=== PATIENT | female | born 1980 | race Two or more races ===

== ENCOUNTER 2018-01-13 11:07 | Emergency (ER) | payer MEDICAID ==
[~2018-01-13] VITALS: Ht 160 cm; Wt 90.7 kg
[~2018-01-13 11:07] MED LIST: CIPR-173 PO; HYDR-4683 PO; METR500T PO
[2018-01-13 11:20] VITALS: BP 108/41
[2018-01-13] MEDS ORDERED: KETOROLAC TROMETH 60MG/2ML VIAL IM ONE (12:15)
[2018-01-13] MEDS ORDERED: METHOCARBAMOL 500 MG TAB PO ONE (12:15)
== END 2018-01-13 13:30 | disposition left against medical advice (07) ==
LOC: ER 11:07
DX: M54.5 Low back pain (principal); M79.1 Myalgia; M54.2 Cervicalgia; E66.01 Morbid (severe) obesity due to excess calories; Z79.899 Other long term (current) drug therapy; Z68.35 Body mass index [BMI] 35.0-35.9, adult
CPT/HCPCS: 81025; 96372; 99283; J1885

== ENCOUNTER 2018-12-18 07:19 | Emergency (ER) | payer MEDICAID ==
[~2018-12-18] VITALS: Ht 160 cm; Wt 90.7 kg
[2018-12-18] MEDS ORDERED: IBUPROFEN 800 MG TAB PO ONE (08:45)
[2018-12-18 10:19] VITALS: BP 108/48
== END 2018-12-18 08:39 | disposition home or self-care (01) ==
LOC: ER 07:19
DX: S82.831A Other fracture of upper and lower end of right fibula, initial encounter for closed fracture (principal); Z79.899 Other long term (current) drug therapy; X50.1XXA Overexertion from prolonged static or awkward postures, initial encounter; Y93.89 Activity, other specified; Y99.8 Other external cause status; Y92.89 Other specified places as the place of occurrence of the external cause
CPT/HCPCS: 29515; 73610; 81025

== ENCOUNTER 2019-04-22 07:40 | Emergency (ER) | payer MEDICAID ==
[~2019-04-22 07:40] MED LIST changes: -HYDR-4683 PO; +HYDR-4833 PO
[2019-04-22 07:54] VITALS: BP 118/71
[2019-04-22 08:16] LABS: Urine Bacteria NONE SEEN /hpf (None Seen); Urine Blood 1+ /uL (Negative); Urine Mucus FEW (None Seen); Urine Specific Gravity 1.022 (1.001-1.035); Urine WBC 1 /hpf (0 - 5)
[2019-04-22] MEDS: IBUPROFEN 600 MG TAB PO ONE (08:41)
[2019-04-22] MEDS: METHOCARBAMOL 500 MG TAB PO ONE (08:41)
== END 2019-04-22 08:55 | disposition home or self-care (01) ==
LOC: ER 07:40
DX: M54.5 Low back pain (principal); Z79.899 Other long term (current) drug therapy
CPT/HCPCS: 72100; 81001; 81025; 82962

== ENCOUNTER 2019-08-08 13:39 | Emergency (ER) | payer MEDICAID ==
[~2019-08-08] VITALS: Ht 160 cm; Wt 90.7 kg
[2019-08-08 14:00] VITALS: BP 110/71
[2019-08-08] MEDS ORDERED: KETOROLAC TROMETH 60MG/2ML VIAL IM ONE (16:45)
== END 2019-08-08 17:23 | disposition home or self-care (01) ==
LOC: ER 13:39
DX: S39.012A Strain of muscle, fascia and tendon of lower back, initial encounter (principal); W01.0XXA Fall on same level from slipping, tripping and stumbling without subsequent striking against object, initial encounter; Y93.89 Activity, other specified; Y92.89 Other specified places as the place of occurrence of the external cause; Y99.8 Other external cause status
CPT/HCPCS: 72100; 96372; 99283; J1885

== ENCOUNTER 2021-12-08 20:40 | Emergency (ER) | payer OTHER, MEDICAID ==
[~2021-12-08] VITALS: Ht 160 cm; Wt 90.7 kg
[2021-12-08] MEDS ORDERED: diphenhdrAMINE HCL 50 MG/1 ML VL IV ONE (22:00)
[2021-12-08] MEDS ORDERED: METOCLOPRAMIDE HCL 5MG/ml INJ 2ml VIAL IV ONE (22:00)
[2021-12-08] MEDS ORDERED: SODIUM CHLORIDE 0.9% 1,000 ML IV ONE (22:00)
[2021-12-08 23:27] VITALS: BP 122/41
== END 2021-12-08 23:48 | disposition home or self-care (01) ==
LOC: ER 20:43
DX: G43.909 Migraine, unspecified, not intractable, without status migrainosus (principal); Z98.890 Other specified postprocedural states
CPT/HCPCS: 96361; 96374; 96375; 99284; J1200; J2765; J7030

== ENCOUNTER 2022-01-11 08:46 | Emergency (ER) | payer OTHER, MEDICAID ==
[~2022-01-11] VITALS: Ht 160 cm; Wt 90.7 kg
[2022-01-11 08:46] VITALS: BP 113/55
[2022-01-11 09:21] LABS: Urine Bacteria NONE SEEN /hpf (None Seen); Urine Blood 3+ /uL (Negative); Urine Mucus FEW (None Seen); Urine Specific Gravity 1.026 (1.001-1.035); Urine WBC 26 /hpf (0 - 5)
[2022-01-11] MEDS ORDERED: PHENAZOPYRIDINE HCL 100 MG TAB ONE (09:43)
[2022-01-11] MEDS ORDERED: PHENAZOPYRIDINE HCL 100 MG TAB PO ONE (09:45)
[2022-01-11] MEDS ORDERED: PHEN200T16 PO (10:27)
[2022-01-11] MEDS ORDERED: SULF400T11 PO (10:27)
[2022-01-11] MEDS ORDERED: METR500T PO (10:27)
== END 2022-01-11 10:29 | disposition home or self-care (01) ==
LOC: ER 08:46
DX: N39.0 Urinary tract infection, site not specified (principal); N76.0 Acute vaginitis
CPT/HCPCS: 81001; 81025; 87210

== ENCOUNTER 2022-10-06 08:20 | Emergency (ER) | payer MEDICAID, OTHER ==
[~2022-10-06] VITALS: Ht 160 cm; Wt 81.8 kg
[~2022-10-06 08:20] MED LIST changes: +PHEN200T16 PO; +SULF400T11 PO
[2022-10-06 08:48] VITALS: BP 99/52
[2022-10-06 09:04] LABS: Basophils # (auto) 0.1 10 ^3/uL (0-0.2); Mean Corpuscular Hemoglobin 22.4 pg (28.0-32.0); Monocytes # (auto) 0.5 10 ^3/uL (0-1.3)
[2022-10-06 09:10] LABS: Basophils % (auto) 0.4 % (0.0-2.0); Eosinophils # (auto) 0.7 10 ^3/uL (0-0.8); Eosinophils % (auto) 6.6 % (0.0-7.0); Hematocrit 35.4 % (36.0-46.0); Hemoglobin 11.1 g/dL (12.2-16.2); Lymphocytes # (auto) 3.1 10 ^3/uL (0.4-5.4); Lymphocytes % (auto) 27.7 % (10.0-50.0); Mean Corpuscular Hgb Conc. 31.4 g/dL (32.0-36.0); Mean Corpuscular Volume 71.5 fL (80.0-100.0); Monocytes % (auto) 4.3 % (0.0-12.0); Neutrophils # (auto) 6.8 10 ^3/uL (1.6-8.6); Nucleated Red Blood Cells % 0.1 %; Red Blood Cells 4.96 10^6/uL (4.0-5.20); Red Cell Distribution Width 19.1 % (11.8-14.3); White Blood Cell 11.3 10^3/uL (4.4-10.8)
[2022-10-06 09:17] LABS: Urine Bacteria NONE SEEN /hpf (None Seen); Urine Blood TRACE /uL (Negative); Urine Mucus FEW (None Seen); Urine Specific Gravity 1.018 (1.001-1.035); Urine WBC <1 /hpf (0 - 5)
[2022-10-06 09:21] LABS: Albumin 3.4 g/dL (3.4-5.0); Calcium 8.9 mg/dL (8.5-10.1); Potassium 3.7 mmol/L (3.5-5.1)
[2022-10-06 09:25] LABS: BUN/Creatinine Ratio 10.4; Bilirubin, Total 0.8 mg/dL (0.2-1.0); Total Protein 8.2 g/dL (6.4-8.2)
[2022-10-06] MEDS ORDERED: KETOROLAC TROMETH 60MG/2ML VIAL IM ONE (10:15)
[2022-10-06] MEDS ORDERED: metroNIDAZOLE 500MG/100ML 100 ML IV ONE (10:45)
[2022-10-06] MEDS ORDERED: ONDANSETRON HCL 4 MG/2 ML VIAL IV ONE (10:45)
[2022-10-06] MEDS ORDERED: SODIUM CHLORIDE 0.9% 1,000 ML IV ONE (10:45)
[2022-10-06] MEDS ORDERED: levoFLOXacin 500MG 100 ML IV ONE (10:45)
[2022-10-06] MEDS ORDERED: CIPR-173 PO (14:06)
[2022-10-06] MEDS ORDERED: METR500T PO (14:06)
[2022-10-06] MEDS ORDERED: IBUP800T27 PO (14:06)
== END 2022-10-06 14:11 | disposition home or self-care (01) ==
LOC: ER 08:20
DX: K57.32 Diverticulitis of large intestine without perforation or abscess without bleeding (principal); K80.20 Calculus of gallbladder without cholecystitis without obstruction
CPT/HCPCS: 36415; 74176; 80053; 81001; 81025; 83690; 85025; 96365; 96366; 96367; 96372; 96375; 99285; J1885; J1956; J2405; J3490; J7030